=== PATIENT | female | born 2000 | race Caucasian/White ===

== ENCOUNTER → 2022-08-20 10:28 | Outpatient (BNVA) | payer MEDICAID, SELFPAY | PROVIDERS: Family Provider Nurse Practitioner; Visit Provider Nurse Practitioner Women's Health | DX: Z34.90 Encounter for supervision of normal pregnancy, unspecified, unspecified trimester (principal) | CPT/HCPCS: 80307; 81025; 84315; 84443; 85027; 86592; 86762; 86803; 86850; 86900; 87086; 87340; 87806 ==

== ENCOUNTER 2022-09-13 14:27 | Emergency (ER) | payer OTHER, MEDICAID, SELFPAY ==
[2022-09-13 14:34] VITALS: BP 111/76; PULSE 98; RESP 18; TEMP 36.7; O2SAT 99
--- NOTE | 2022-09-13 14:49 | ED_ITS ---
HPI - Nausea/Vomiting/Diarrhea General: Chief complaint: Nausea/Vomiting/Diarrhea Stated complaint: vomiting Time Seen by Provider: 09/13/22 14:31 Source: patient Mode of arrival: ambulatory Limitations: no limitations History of Present Illness: Patient is a 22-year-old female at approximately 8.5 weeks gestation here for nausea and vomiting. At her last OB visit on 09/04 LMP placed her at roughly 13 weeks but on dating ultrasound performed that same day she was dated at 7w5d. Patient states thus far she has had one episode of nausea and vomiting not including today's visit. She states she woke up this morning feeling nauseous and has had 4 episodes of nonbloody emesis. She is not having any abdominal pain or cramping. No changes in bowel movements. No fevers. No diffuse body aches. Denies sick contacts or poor food exposures. No vaginal bleeding. MD elicited complaint: nausea and vomiting Onset (ago): hour(s) Associated nausea: Yes Associated abdominal pain: No Location of pain: None Severity: mild Exacerbating factors: eating Relieving factors: none Context: other ( ) Associated symtoms: Reports nausea; Denies chest pain, dizziness, dysuria, fatigue, headache(s) or malaise Review of Systems Const: Denies: fever(s), chills, body aches, fatigue or malaise Card: Denies: chest pain Resp: Denies: dyspnea GI: Reports: nausea and vomiting; Denies: abdominal pain, hematemesis or change in bowel habits : Denies: flank pain, dysuria, urinary urgency, hematuria, vaginal bleeding, vaginal discharge or pelvic pain Musc: Denies: back pain Skin/Breast: Denies: rash Neuro: Denies: headache(s) or dizziness PFSH ED PFSH: Medical History No pertinent past medical history Surgical History No pertinent past surgical history Family History Grandmother Breast cancer MATERNAL AND PATERNAL Hypertension MATERNAL AND PATERNAL Stroke MATERNAL AND PATERNAL Grandfather Hypertension MATERNAL AND PATERNAL Stroke MATERNAL AND PATERNAL Mother Hypertension Denies family history of Colon cancer Ovarian cancer Diabetes Heart disease Hypercholesteremia Uterine cancer Thyroid disease Physical Exam Const: COMMON NORMALS: no acute distress, average body habitus, patient oriented x3, no limitations, healthy appearing, alert and well nourished GENERAL APPEARANCE: cooperative ORIENTATION/CONSCIOUSNESS: Yes awake, Yes oriented to person, Yes oriented to place and Yes oriented to time HENMT: COMMON NORMALS: normocephalic and atraumatic HEAD & SCALP: normal to inspection, normocephalic and atraumatic Resp: COMMON NORMALS: normal respiratory effort and clear to auscultation bilaterally AUSCULTATION: clear to auscultation bilaterally Cardio: COMMON NORMALS: regular rate and regular rhythm RATE: regular rate RHYTHM: regular rhythm GI: COMMON NORMALS: Normal to inspection, nondistended, normoactive bowel sounds present, Soft to palpation, non-tender, No hepatosplenomegaly present and no masses PALPATION: Yes Soft to palpation and Yes No hepatosplenomegaly present : COMMON NORMALS: Yes no CVA tenderness BLADDER/KIDNEY EXAM: Yes no CVA tenderness Back/Pelvis: COMMON NORMALS: no CVA tenderness Extremity: GENERAL: Yes normal exam except as noted Neuro: THOM COMA SCALE: document GCS findings Thom coma scale eye opening: Spontaneous Austin coma scale verbal response: Orientated Austin coma scale motor response: Obey commands Thom coma scale total score: 15 COMMON NORMALS: patient oriented x3 SENSORIUM/ORIENTATION: Yes alert, Yes oriented to person, Yes oriented to place and Yes oriented to time Skin: COMMON NORMALS: no rashes or lesions noted GENERAL SKIN EXAM: no rashes or lesions noted Course 2 Vital Signs: Vital signs: Vital Signs Temperature 98.0 F 09/13/22 14:34 Pulse Rate 94 09/13/22 15:30 Respiratory Rate 14 09/13/22 15:06 Blood Pressure 111/76 09/13/22 14:34 Pulse Oximetry 100 09/13/22 15:30 Oxygen Delivery Me thod 09/13/22 15:30 MDM - Nausea/Vomiting/Diarrhea Medical Decision Making Patient states she feels better after IV Benadryl and Reglan. She was able to hold down liquids easily here. She has not had any vomiting throughout her stay. Vital signs are stable. Blood work is unremarkable. Patient will be discharged home with a prescription for Diclegis. Recommend she follow-up with her OB provider if nausea/vomiting persists. Lab Data 09/13/22 14:59 09/13/22 15:36 Laboratory Results WBC 12.7 10^3/uL (4.5-13.0) 09/13/22 14:59 RBC 4.20 10^6/uL (4.1-5.3) 09/13/22 14:59 Hgb 12.6 g/dL (11.5-15.3) 09/13/22 14:59 Hct 38.9 % (37.0-47.0) 09/13/22 14:59 MCV 92.6 fl (81-99) 09/13/22 14:59 MCH 30.0 pg (28.0-34.0) 09/13/22 14:59 MCHC 32.4 g/dL (30.0-36.0) 09/13/22 14:59 RDW 13.2 % (12.1-15.1) 09/13/22 14:59 Plt Count 214 10^3/cmm (130-400) 09/13/22 14:59 MPV 10.1 fL (7.4-10.4) 09/13/22 14:59 Neut % (Auto) 82.1 % 09/13/22 14:59 Lymph % (Auto) 10.8 % 09/13/22 14:59 [place] % (Auto) 5.7 % 09/13/22 14:59 Eos % (Auto) 0.4 % 09/13/22 14:59 Baso % (Auto) 0.3 % 09/13/22 14:59 Neut # (Auto) 10.45 10^3/uL (1.8-8.0) H 09/13/22 14:59 Lymph # (Auto) 1.4 10^3/uL (1.5-6.5) L 09/13/22 14:59 [place] # (Auto) 0.7 10^3/uL (0.2-0.9) 09/13/22 14:59 Eos # (Auto) 0.1 10^3/uL (0.0-0.8) 09/13/22 14:59 Baso # (Auto) 0.0 10^3/uL (0.0-0.1) 09/13/22 14:59 Nucleated RBC % (auto) 0 % 09/13/22 14:59 Nucleated RBCs # 0.0 /100WBC 09/13/22 14:59 Sodium 132 mmol/L (136-145) L 09/13/22 15:36 Potassium 3.8 mmol/L (3.5-5.1) 09/13/22 15:36 Chloride 101 mmol/L (98-107) 09/13/22 15:36 Carbon Dioxide 19 mmol/L (22-29) L 09/13/22 15:36 Anion Gap 15.8 (5-19) 09/13/22 15:36 BUN 8 mg/dL (6-20) 09/13/22 15:36 Creatinine 0.5 mg/dL (0.5-0.9) 09/13/22 15:36 GFR Calculation 157.3 mL/min (90-130) H 09/13/22 15:36 Glucose 74 mg/dL (65-115) 09/13/22 15:36 Calculated Osmolality 271 mOsm/kg (285-295) L 09/13/22 15:36 Calcium 9.0 mg/dL (8.5-10.5) 09/13/22 15:36 Total Bilirubin 0.3 mg/dL (0.15-1.2) 09/13/22 15:36 AST 19 U/L (0-32) 09/13/22 15:36 ALT 21 U/L (0-33) 09/13/22 15:36 Alkaline Phosphatase 55 U/L (35-105) 09/13/22 15:36 Total Protein 6.8 g/dL (6.6-8.7) 09/13/22 15:36 Albumin 4.0 g/dL (3.5-5.2) 09/13/22 15:36 Globulin 2.8 g/dL (1.3-4.6) 09/13/22 15:36 Ser , Semi-Qnt 872800.00 mIU/mL 09/13/22 15:36 Urine Color Yellow (Yellow) 09/13/22 15:55 Urine Appearance Hazy (CLEAR) A 09/13/22 15:55 Urine pH 6.5 (5-7) 09/13/22 15:55 Ur Specific [place] 1.015 (1.005-1.030) 09/13/22 15:55 Urine Protein Neg (Negative) 09/13/22 15:55 Urine Glucose (UA) Norm (Normal) 09/13/22 15:55 Urine Ketones 2+ (Negative) H 09/13/22 15:55 Urine Blood Neg (Negative) 09/13/22 15:55 Urine Nitrate Negative (Negative) 09/13/22 15:55 Urine Bilirubin Neg (Negative) 09/13/22 15:55 Urine Urobilinogen Norm mg/dL (Negative) 09/13/22 15:55 Ur Leukocyte Esterase Trace (Negative) H 09/13/22 15:55 Urine RBC None /hpf (0-2) 09/13/22 15:55 Urine WBC 5-10 /hpf (0-5) H 09/13/22 15:55 Ur Squamous Epith Cells 15-25 /hpf (0-5) H 09/13/22 15:55 Ur Transition Epith Cell 0-4 /hpf 09/13/22 15:55 Amorphous Sediment 1+ /hpf 09/13/22 15:55 Urine Bacteria 1+ /hpf (NONE) H 09/13/22 15:55 Urine Mucus 2+ /hpf 09/13/22 15:55 Discharge Plan Discharge Patient Disposition: Home Clinical Impression: Nausea/vomiting in Condition: Stable Prescriptions: New Diclegis 10-10 mg tablet,delayed release (DR/EC) 1 tab PO BID Qty: 10 0RF Discharge Orders: Discharge ED (Routine); Ordered 09/13/22 Ordered By: Fay Kemp Patient Instructions: Nausea and Vomiting in (ED) Coding Level of Care Code ED Lead Customer Service Representative for Prashant Dang
[2022-09-13] MEDS: diphenhydrAMINE 50 mg/mL SDV 1mL 25 MG IVP (14:59)
[2022-09-13] MEDS: sodium chloride 0.9% 1,000 ML 999 ML IV (15:00)
[2022-09-13 15:06] VITALS: PULSE 94; RESP 14; O2SAT 99
[2022-09-13 15:10] LABS: Basophils % 0.3 %; Eosinophils # 0.1 10^3/uL (0.0-0.8); Eosinophils % 0.4 %; Hematocrit 38.9 % (37.0-47.0); Hemoglobin 12.6 g/dL (11.5-15.3); Lymphocytes # 1.4 10^3/uL (1.5-6.5); Lymphocytes % 10.8 %; Mean Corpuscular HGB Conc 32.4 g/dL (30.0-36.0); Mean Corpuscular Volume 92.6 fl (81-99); Mean Platelet Volume 10.1 fL (7.4-10.4); Monocytes # 0.7 10^3/uL (0.2-0.9); Monocytes % 5.7 %; Neutrophils # 10.45 10^3/uL (1.8-8.0); Neutrophils % 82.1 %; Nucleated Red Blood Cells % 0 %; Platelet Count 214 10^3/cmm (130-400); Red Cell Distribution Width 13.2 % (12.1-15.1); White Blood Count 12.7 10^3/uL (4.5-13.0)
[2022-09-13] MEDS: metoclopramide 5 mg/mL SDV 2 mL 10 MG IVP (15:29)
[2022-09-13 15:30] VITALS: PULSE 94; O2SAT 100
[2022-09-13 16:23] LABS: Alanine Aminotransferase 21 U/L (0-33); Alkaline Phosphatase 55 U/L (35-105); Anion Gap 15.8 (5-19); Aspartate Amino Transferase 19 U/L (0-32); Blood Urea Nitrogen 8 mg/dL (6-20); Carbon Dioxide 19 mmol/L (22-29); Chloride 101 mmol/L (98-107); Globulin 2.8 g/dL (1.3-4.6); Glomerular Filtration Rate 157.3 mL/min (90-130); Glucose 74 mg/dL (65-115); Osmolality Calculated 271 mOsm/kg (285-295); Potassium 3.8 mmol/L (3.5-5.1); Sodium 132 mmol/L (136-145); Total Bilirubin 0.3 mg/dL (0.15-1.2); Total Protein 6.8 g/dL (6.6-8.7)
[2022-09-13 16:24] LABS: Add Urine Microscopic? YES; Bilirubin Urine Neg (Negative); Blood Urine Neg (Negative); Glucose Urine UA Norm (Normal); Ketones Urine 2+ (Negative); Leukocyte Esterase Urine Trace (Negative); Nitrate Urine Negative (Negative); Protein Urine Neg (Negative); Specific Gravity, Urine 1.015 (1.005-1.030); Urine Appearance Hazy (CLEAR); Urine Color Yellow (Yellow); Urobilinogen Urine Norm (Negative); pH Urine 6.5 (5-7)
[2022-09-13 16:25] LABS: Squamous Epithelial Cell Urine 15-25 /hpf (0-5)
[2022-09-13 16:26] LABS: Add Urine Culture? No; Amorphous Sediment Urine 1+ /hpf; Bacteria Urine 1+ /hpf; Mucus Urine 2+ /hpf; Transitional Epi Cells Urine 0-4 /hpf
--- NOTE | 2022-09-18 14:14 | DCPLANNER ---
manager shell called patient due to no primary care physician - no answer at this time.
== END 2022-09-13 18:02 | disposition home or self-care (01) ==
PROVIDERS: Emergency Provider Physician Assistant
DX: O21.8 Other vomiting complicating pregnancy (principal); Z3A.08 8 weeks gestation of pregnancy
CPT/HCPCS: 36415; 80053; 81001; 84702; 85025; 96374; 96375; 99284; J1200; J2765; J7030

== ENCOUNTER → 2022-09-25 14:37 | Outpatient (BNVA) | payer OTHER, MEDICAID, SELFPAY | PROVIDERS: Visit Provider Obstetrics & Gynecology | DX: Z34.90 Encounter for supervision of normal pregnancy, unspecified, unspecified trimester (principal) | CPT/HCPCS: 80307; 84315; 87086 ==

== ENCOUNTER → 2022-10-10 14:30 | Outpatient (BNVA) | payer OTHER, MEDICAID, SELFPAY | PROVIDERS: Visit Provider Obstetrics & Gynecology | DX: Z34.90 Encounter for supervision of normal pregnancy, unspecified, unspecified trimester (principal) | CPT/HCPCS: 84315; 87491; 87591; 87661 ==

== ENCOUNTER → 2022-11-06 09:30 | Outpatient (BNVA) | payer OTHER, MEDICAID, SELFPAY | PROVIDERS: Visit Provider Obstetrics & Gynecology | DX: Z34.90 Encounter for supervision of normal pregnancy, unspecified, unspecified trimester (principal) | CPT/HCPCS: 84315; 87086 ==

== ENCOUNTER → 2022-12-05 11:07 | Outpatient (BNVA) | payer OTHER, MEDICAID, SELFPAY | PROVIDERS: Visit Provider Obstetrics & Gynecology | DX: Z34.90 Encounter for supervision of normal pregnancy, unspecified, unspecified trimester (principal) | CPT/HCPCS: 84315; 87086 ==

== ENCOUNTER → 2022-12-29 10:03 | Outpatient (BNVA) | payer OTHER, MEDICAID, SELFPAY | PROVIDERS: Visit Provider Obstetrics & Gynecology | DX: Z34.90 Encounter for supervision of normal pregnancy, unspecified, unspecified trimester (principal) | CPT/HCPCS: 84315; 87086 ==

== ENCOUNTER → 2023-01-28 09:30 | Outpatient (BNVA) | payer OTHER, MEDICAID, SELFPAY | PROVIDERS: Visit Provider Obstetrics & Gynecology | DX: Z34.90 Encounter for supervision of normal pregnancy, unspecified, unspecified trimester (principal) | CPT/HCPCS: 82950; 84315; 85025 ==

== ENCOUNTER → 2023-02-16 08:00 | Outpatient (BNVA) | payer OTHER, MEDICAID, SELFPAY | PROVIDERS: Visit Provider Obstetrics & Gynecology | DX: Z34.90 Encounter for supervision of normal pregnancy, unspecified, unspecified trimester (principal) | CPT/HCPCS: 82951; 82952 ==

== ENCOUNTER → 2023-03-03 10:25 | Outpatient (BNVA) | payer OTHER, MEDICAID, SELFPAY | PROVIDERS: Visit Provider Obstetrics & Gynecology | DX: Z34.90 Encounter for supervision of normal pregnancy, unspecified, unspecified trimester (principal) | CPT/HCPCS: 76816 ==

== ENCOUNTER → 2023-03-24 09:06 | Outpatient (BNVA) | payer OTHER, MEDICAID, SELFPAY | PROVIDERS: Visit Provider Obstetrics & Gynecology | DX: Z34.90 Encounter for supervision of normal pregnancy, unspecified, unspecified trimester (principal) | CPT/HCPCS: 84315; 87081 ==

== ENCOUNTER 2023-04-12 07:54 | Inpatient (IN) | payer OTHER, MEDICAID, SELFPAY ==
[2023-04-12] VITALS (90 sets, daily range): BP systolic 99–141; BP diastolic 54–88; PULSE 75–187; RESP 15–16; TEMP 36.4–37.1; O2SAT 91–100; BMI 23.6
[2023-04-12] MEDS: calcium carbonate 500 mg Chew Tablet 1000 MG PO (08:14)
[2023-04-12 09:08] LABS: Basophils # 0.1 10^3/uL (0.0-0.1); Basophils % 0.6 %; Eosinophils # 0.1 10^3/uL (0.0-0.8); Eosinophils % 0.9 %; Hematocrit 30.6 % (36-47); Lymphocytes # 1.6 10^3/uL (0.8-4.8); Lymphocytes % 19.6 %; Mean Corpuscular Hemoglobin 29.1 pg (27-33); Mean Corpuscular Volume 93.9 fl (85-98); Mean Platelet Volume 9.9 fL (7.4-10.4); Monocytes # 0.7 10^3/uL (0.2-0.9); Monocytes % 9.1 %; Neutrophils # 5.45 10^3/uL (1.8-7.7); Neutrophils % 68.9 %; Nucleated Red Blood Cells % 0 %; Platelet Count 167 10^3/cmm (157-399); Red Blood Count 3.26 10^6/uL (3.85-5.65); Red Cell Distribution Width 12.2 % (12.1-15.1); White Blood Count 7.91 10^3/uL (3.29-11.43)
[2023-04-12] MEDS: oxytocin 30 UNIT/500 ML BAG IV (09:08)
[2023-04-12] MEDS: dextrose 5%-lactated ringers 1,000 ML 125 ML IV ×2 (09:08→23:51)
[2023-04-12] MEDS: fentaNYL 50 mcg/mL INJ 2mL IVP ×2 (12:19→14:16)
--- NOTE | 2023-04-12 14:10 | P.PN_ITS ---
AUTOMOTIVE SALES PROFESSIONAL Subjective Subjective: Interval history: Fetus reassuring Comfortable with epidural Cx: 6 cm Continue Pitocin Labor: Station: +1 Amniotic Membrane Status: Ruptured Monitor M ode: External Contraction Pattern: Regular Status: Category II Vitals/I&O/Wt Last Vital Signs Temp 98.8 F 04/12/23 17:53 Pulse 117 H 04/12/23 22:27 Resp 15 04/12/23 14:16 BP 118/68 04/12/23 22:27 Pulse Ox 98 04/12/23 22:25 O2 Del Method Room Air 04/12/23 08:05 04/12/23 04/12/23 04/12/23 06:59 14:59 22:59 Intake Total 32.016 / 32.016 103.883 / 135.899 Output Total 25 / 25 Balance 32.016 / 32.016 78.883 / 110.899 Weight last 48 hrs Weight 121 lb Physical Exam Urinary Catheter Management: Buckley: Cath Placed During This Visit: yes Reason for Continuing Indwelling Catheter: Not indwelling catheter Urinary Catheter Date of Insertion: 04/12/23 Urinary Catheter Time of Insertion: 16:15 Data 04/12/23 08:32 A&P Assessment and plan (1) Encounter for induction of labor: patient comfortable with epidural cervix progressing well continue pitocin Attestations Medical Necessity Statement*: patient at 39 w 1 d, admitted for labor induction Coding Level of Care Code Acute Code for Chg Fwd Diagnoses Encounter for induction of labor Z34.90 Time Spent (min) 20
[2023-04-12] MEDS: lactated ringers 1,000 ML 999 ML IV (15:10)
[2023-04-12] MEDS: ondansetron 2 mg/ML SDV 2 mL 4 MG IVP ×2 (15:10→23:50)
--- NOTE | 2023-04-12 15:21 | P.HP_ITS ---
Providers/Chief Complaint Admitting Physician: Buster Perea MD Primary PRESSURE DISPATCHER: Buster Perea MD Chief Complaint: IOL HPI PRESSURE DISPATCHER History of Present Illness Jessica Parra is a 23 year old female 23 y.o.? G1 EDC? April 18, 2023 At 39 w 1 d No complications No c/o + active movements Admitted for elective induction of labor Fundal height has been less than gestational age OB sono done 03-03-23 showed adequate interval growth 1-h glucola mildly elevated 3-h GTT?? all WNL Present Details : 1 Para: 0 Labs Rubella: Immune RPR: Negative GBS: Negative Medications/Allergies Home Medications Medication Instructions Recorded Confirmed Last Taken Type PNV 153-FA 400 mcg-om3 35 mg-dha tab PO 10/10/22 04/07/23 Unknown History 25 mg-epa 5 mg-fish oil chew tablet ( Gummies) calcium carbonate 200 mg calcium 200 mg PO BID 10/10/22 04/07/23 Unknown History (500 mg) chewable tablet (Tums) Allergies Allergy/AdvReac Type Severity Reaction Status Date / Time No Known Allergies Allergy Verified 03/31/23 09:18 PFSH PRESSURE DISPATCHER PFSH: Medical History No pertinent past medical history Surgical History No pertinent past surgical history Family History Grandmother Breast cancer MATERNAL AND PATERNAL Hypertension MATERNAL AND PATERNAL Stroke MATERNAL AND PATERNAL Grandfather Hypertension MATERNAL AND PATERNAL Stroke MATERNAL AND PATERNAL Mother Hypertension Denies family history of Colon cancer Ovarian cancer Diabetes Heart disease Hypercholesteremia Uterine cancer Thyroid disease History History History 1 Term 0 Miscarriages/Ectopic Living Children Care JOSUE Calculator Estimated Delivery Date Method Current WG Current Estimate 04/18/23 Ultrasound #1 39w 1d Other Estimates 03/11/23 LMP (Certain) 44w 4d Vitals/I&O/Wt Last Vital Signs Temp 97.5 F L 04/12/23 14:51 Pulse 105 H 04/12/23 15:12 Resp 15 04/12/23 14:16 BP 132/71 04/12/23 15:12 O2 Del Method Room Air 04/12/23 08:05 04/12/23 04/12/23 04/12/23 06:59 14:59 22:59 Intake Total 32.016 / 32.016 Balance 32.016 / 32.016 Weight last 48 hrs Weight 121 lb Physical Exam Narrative: Weight? 120? lbs;? 5? VS? normal Comfortable, awake, alert Lungs:? clear Cor:? RRR FH? 36 cm Cervix:? 1 / 50% / -2 / posterior Ext:? no edema Data 04/12/23 08:32 Results Labs OB ([facility]): Obstetrics US 03/03/23 Blood Type O Positive 04/12/23 Antibody Screen Negative 04/12/23 Hct 30.6 % (36-47) L 04/12/23 Hgb 9.50 g/dL (11.27-16.99) L 04/12/23 Rho(D) Type Positive 04/12/23 Plt Count 167 10^3/cmm (157-399) 04/12/23 Hep Bs Antigen Non-reactive (Nonreactive) 08/20/22 Hepatitis C Antibody Non-reactive (Nonreactive) 08/20/22 Rubella IgG Antibody 25.2 IU/mL (0.0-10.0) H 08/20/22 RPR Nonreactive (Nonreactive) 08/20/22 HIV 1&2 Ab & HIV 1 Ag Non-reactive (Non-Reactiv) 08/20/22 TSH 0.94 uIU/mL (0.27-4.20) 08/20/22 Gest Glucose Tolerance mg/dL 02/16/23 Ser , Semi-Qnt 385469.00 mIU/mL 09/13/22 HCG, Qual Positive (Negative) H 08/20/22 Urine Opiates Screen Negative ng/mL (Negative) 09/25/22 Ur Barbiturates Screen Negative ng/mL (Negative) 09/25/22 Ur Phencyclidine Scrn Negative ng/mL (Negative) 09/25/22 Ur Amphetamines Screen Negative ng/mL (Negative) 09/25/22 U Benzodiazepines Scrn Negative ng/mL (Negative) 09/25/22 Urine Cocaine Screen Negative ng/mL (Negative) 09/25/22 U Marijuana (THC) Screen Negative ng/mL (Negative) 09/25/22 Micro Urine Specimen 12/29/22 A&P Assessment and plan (1) Supervision of normal : 39 w 1 d fetus reassuring (2) Encounter for induction of labor: Admitted for elective labor induction, per patient request Plan start Pitocin Attestations Medical Necessity Statement*: patient at 39 w 1 d, admitted for induction of labor Coding Level of Care Code Acute Code for Chg Fwd Diagnoses Supervision of normal Z34.90 Encounter for induction of labor Z34.90 Time Spent (min) 20
--- NOTE | 2023-04-12 15:32 | ANES.PREANE2 ---
Pre-Anesthetic Assessment Height/Weight: Height 1.52 m Weight 54.885 kg Temp Pulse Resp BP O2 Del Method 97.5 F L 105 H 15 132/71 Room Air 04/12/23 14:51 04/12/23 15:12 04/12/23 14:16 04/12/23 15:12 04/12/23 08:05 Preop Diagnosis: labor pain epidural Familial anesthetic complications: none Was Beta Nohemi taken within 24 hours: N/A Was Clonidine taken within 24 hours: N/A Social No alcohol and No tobacco Exam alert, oriented x 3, clear to auscultation bilaterally and regular rate & rhythm Airway Submandibular: within normal limits Cervical ROM: within normal limits Mallampati: Class II Dentition: full Pulmonary None reported CV/HEM None reported None reported Hepatic None reported GI Gastroesophageal Reflux Disease Metabolic None reported Musc/skel None reported Neuropsych None reported Anesthetic Plan ASA status: 2 Anesthesia: Regional (specify below) Risk of > 500 ml blood loss (7ml/kg in children): No Medications/Allergies Home Medications Medication Instructions Recorded Confirmed Last Taken Type PNV 153-FA 400 mcg-om3 35 mg-dha tab PO 10/10/22 04/07/23 Unknown History 25 mg-epa 5 mg-fish oil chew tablet ( Gummies) calcium carbonate 200 mg calcium 200 mg PO BID 10/10/22 04/07/23 Unknown History (500 mg) chewable tablet (Tums) Allergies Allergy/AdvReac Type Severity Reaction Status Date / Time No Known Allergies Allergy Verified 03/31/23 09:18 Current Medications Generic Name Dose Route Start Last Admin Trade Name Em PRN Reason Stop Dose Admin Calcium Carbonate 1,000 mg 04/12/23 07:55 04/12/23 08:14 Calcium Carbonate 500 Mg Chew Tablet PO 1,000 mg Q4H PRN Administration Heartburn/Indigestion (Use 1st) Fentanyl 25 - 100 mcg 04/12/23 10:26 04/12/23 14:16 Fentanyl 50 Mcg/Ml Inj 2ml IVP 50 mcg Q1H PRN Administration SEVERE PAIN Dextrose/Lactated Ringer's 1,000 mls @ 125 mls/hr 04/12/23 08:00 04/12/23 09:08 Dextrose 5%-Lactated Ringers IV 125 mls/hr .Q8H RAY Administration Oxytocin 30 unit in 500 mls @ 1 mls/hr 04/12/23 09:00 04/12/23 13:25 Pitocin IV 15 milliunit/min .Q24H RAY 15 mls/hr Titration Protocol 1 MILLIUNIT/MIN Lactated Ringer's 1,000 mls @ 999 mls/hr 04/12/23 13:09 04/12/23 15:10 Lactated Ringers IV 999 mls/hr .Q1H1M PRN Administration See label comments Ondansetron HCl 4 mg 04/12/23 07:55 04/12/23 15:10 Ondansetron 2 Mg/Ml Sdv 2 Ml IVP 4 mg Q4H PRN Administration NAUSEA AND VOMITING PFSH Anesthesia Medical History No pertinent past medical history Surgical History No pertinent past surgical history Family History Grandmother Breast cancer MATERNAL AND PATERNAL Hypertension MATERNAL AND PATERNAL Stroke MATERNAL AND PATERNAL Grandfather Hypertension MATERNAL AND PATERNAL Stroke MATERNAL AND PATERNAL Mother Hypertension Denies family history of Colon cancer Ovarian cancer Diabetes Heart disease Hypercholesteremia Uterine cancer Thyroid disease Female Reproductive History : 1 Data Anesthesia 04/12/23 08:32 Short CBC 04/12/23 Range/Units 08:32 WBC 7.91 (3.29-11.43) 10^3/uL Hgb 9.50 L (11.27-16.99) g/dL Hct 30.6 L (36-47) % MCV 93.9 (85-98) fl Plt Count 167 (157-399) 10^3/cmm Neut % (Auto) 68.9 % Neut # (Auto) 5.45 (1.8-7.7) 10^3/uL Blood Bank 04/12/23 08:32 Blood Type O Positive Rho(D) Type Positive Antibody Screen Negative Cardiac Studies: No Data to Display
[2023-04-12] MEDS: ROPivacaine syringe 100 MG/50 ML SYRINGE 10 MG EPIDURAL ×2 (15:50→19:01)
--- NOTE | 2023-04-12 15:59 | P.ANES_ITS ---
Anesthesia Procedures Procedure/Date: 04/12/23 epidural Procedure Narrative: epidural complete, bolus given, epidural pump initiated with ASSISTANT [employer] ATTORNEY education given, vitals taken during procedure and satisfactory throughout, patient admits to decrease pain, report of procedure to OB RN Epidural: Time Out Performed: Yes Consents Signed: Procedure Consent Consent: requested by attending/covering physician, from patient, risks and benefits reviewed and patient agrees to proceed Lumbar Level: L3-L4 Epidural position: sitting Epidural procedure: sterile prep of area, 1% lidocaine to numb the area (3 mL), 18 g needle, negative for paresthesia passed, neg for paresthesia, test dose given, 1.5% xylocaine 1:200k epi (5 mL), 0.2% Ropivacaine bolus ml (5 mL), placed PCEA, no systemic response, sterile dressing applied, L.U.D. no apparent complications and 0.2% Ropiavacaine @ mls/hr (13 mL/hr)
--- NOTE | 2023-04-12 20:45 | PM.OBGYPN ---
THERAPY SITE COORDINATOR Subjective Subjective: Interval history: April 12, 2023, 2044 DELIVERY NOTE , vigorous Normal placenta and cord Cord gases and blood obtained Right vaginal sulcus laceration repaired in layers Second-degree perineal laceration repaired EBL: 750 cc No complications Labor: Station: +1 Amniotic Membrane Status: Ruptured Monitor Mode: External Contraction Pattern: Regular Status: Category II Vitals/I&O/Wt Last Vital Signs Temp 98.8 F 04/12/23 17:53 Pulse 117 H 04/12/23 22:30 Resp 15 04/12/23 14:16 BP 118/68 04/12/23 22:27 Pulse Ox 100 04/12/23 22:30 O2 Del Method Room Air 04/12/23 08:05 04/12/23 04/12/23 04/12/23 06:59 14:59 22:59 Intake Total 32.016 / 32.016 103.883 / 135.899 Output Total 25 / 25 Balance 32.016 / 32.016 78.883 / 110.899 Weight last 48 hrs Weight 121 lb Physical Exam Urinary Catheter Management: Buckley: Cath Placed During This Visit: yes, but has since been removed by the nurse Reason for Continuing Indwelling Catheter: Not indwelling catheter Urinary Catheter Date of Insertion: 04/12/23 Urinary Catheter Time of Insertion: 16:15 Date Urinary Catheter Removed: 04/12/23 Time Urinary Catheter Discontinued: 19:44 Data 04/12/23 08:32 A&P Assessment and plan (1) Vaginal delivery: Attestations Medical Necessity Statement*: patient at 39 w 1 d, admitted for labor induction. Vaginal delivery with repair of vaginal lacerations. Coding Level of Care Code Acute Code for Chg Fwd Diagnoses Vaginal delivery O80 Time Spent (min) 90
--- NOTE | 2023-04-12 22:36 | PM.DELIVERY ---
Delivery Note: Date of delivery: April 12, 2023 Pre-delivery diagnoses: 39 w 1 d induction of labor Post-delivery diagnoses: vaginal delivery right vaginal sulcus and second-degree perineal lacerations, repaired Procedure: vaginal delivery repair of right vaginal sulcus and second-degree perineal lacerations Op report anesthesia: Epidural Delivering Physician: Buster Perea MD Estimated blood loss (mL): 750 Findings: vigorous normal placenta and cord cord gases and blood obtained right vaginal sulcus and second-degree perineal lacerations with brisk bleeding, controlled and repaired in layers Pre-Delivery Course: patient progressed with pitocin induction Delivery: vaginal Post-Delivery Status: stable History History History 1 Term 0 Miscarriages/Ectopic Living Children A&P Assessment and plan (1) Vaginal delivery: (2) Vaginal laceration: right vaginal sulcus and second-degree perineal lacerations with brisk bleeding, controlled and repaired in layers Coding Level of Care Code Acute Code for Chg Fwd Diagnoses Vaginal delivery O80 Vaginal laceration S31.41XA Time Spent (min) 90
[2023-04-13] VITALS (7 sets, daily range): BP systolic 107–131; BP diastolic 63–76; PULSE 86–108; RESP 15–18; TEMP 36.3–36.8; O2SAT 96–97
[2023-04-13 09:45] LABS: Mean Corpuscular HGB Conc 31.5 g/dL (30-55); Mean Corpuscular Hemoglobin 29.3 pg (27-33); Mean Platelet Volume 9.8 fL (7.4-10.4); Platelet Count 152 10^3/cmm (157-399); Red Blood Count 2.15 10^6/uL (3.85-5.65); Red Cell Distribution Width 12.5 % (12.1-15.1); White Blood Count 12.31 10^3/uL (3.29-11.43)
[2023-04-13] MEDS: acetaminophen 650 mg/20.3 mL UDC PO ×2 (10:36→15:33)
--- NOTE | 2023-04-13 12:33 | P.ANESPOST_ITS ---
Inpatient post-anesthesia follow up: Airway intact: Yes Vital signs: Temperature 98.3 F Pulse Rate 86 Respiratory Rate 18 Blood Pressure 131/75 Pulse Oximetry 96 Oxygen Delivery Me thod Room Air Oxygen Flow Rate Fraction of Inspir ed Oxygen Hydration adequate: Yes Nausea and vomiting: No Pain level: 2 Mental status: Baseline Additional Comments: Anes start 04/12/23 1546 Anes end 04/12/23 0763
--- NOTE | 2023-04-13 12:34 | P.ANESPOST_ITS ---
Inpatient post-anesthesia follow up: Airway intact: Yes Vital signs: Temperature 98.3 F Pulse Rate 86 Respiratory Rate 18 Blood Pressure 131/75 Pulse Oximetry 96 Oxygen Delivery Me thod Room Air Oxygen Flow Rate Fraction of Inspir ed Oxygen Hydration adequate: Yes Nausea and vomiting: No Pain level: 2 Mental status: Baseline Additional Comments: Anes start 04/11/23 0354 Anes end
--- NOTE | 2023-04-13 20:50 | PM.OBGYPN ---
MENTAL HEALTH SPECIALIST Subjective Subjective: Interval history: no c/o no dizziness, chest pain, shortness of breath on exertion no bleeding, pain eating, voiding, ambulating well caring for without any problems Labor: Station: +1 Amniotic Membrane Status: Ruptured Monitor Mode: External Contraction Pattern: Regular Status: Category II Vitals/I&O/Wt Last Vital Signs Temp 97.4 F L 04/13/23 20:46 Pulse 108 H 04/13/23 20:46 Resp 15 04/13/23 20:46 BP 113/76 04/13/23 20:46 Pulse Ox 97 04/13/23 20:46 O2 Del Method Room Air 04/13/23 20:46 Weight last 48 hrs Weight 121 lb Physical Exam Narrative: afebrile, VS normal comfortable, awake, alert Abd: soft, nontender. fundus firm Ext: no edema; nontender Urinary Catheter Management: Buckley: Cath Placed During This Visit: yes, but has since been removed by the nurse Reason for Continuing Indwelling Catheter: Not indwelling catheter Urinary Catheter Date of Insertion: 04/12/23 Urinary Catheter Time of Insertion: 16:15 Date Urinary Catheter Removed: 04/12/23 Time Urinary Catheter Discontinued: 19:44 Data 04/13/23 09:31 A&P Assessment and plan (1) Vaginal delivery: PPD #1 , Right vaginal sulcus laceration repaired in layers Second-degree perineal laceration repaired doing well discharge home today instructions and precautions given call/return if fever, chills, headache, blurry vision, nausea, vomiting, abdominal pain; vaginal bleeding or discharge; shortness of breath, chest pain, leg pains or swelling; inability to void, perineal pain or swelling; feelings of depression or mood changes; thoughts of suicide or harming others; inability to care for baby. (2) Vaginal laceration: (3) Anemia: Patient asymptomatic No dizziness, weakness, palpitations Encouraged iron BID; iron-rich foods; fluids f/u in one week or PRN Attestations Medical Necessity Statement*: patient s/p and perineal laceration repair; plan discharge home today Coding Level of Care Code Acute Code for Chg Fwd Diagnoses Vaginal delivery O80 Vaginal laceration S31.41XA Anemia D64.9 Time Spent (min) 20
--- NOTE | 2023-04-13 20:53 | PM.OBGYDC ---
Discharge Providers TERRAZZO FINISHER Date of Admission: 04/12/23 07:54 Date of Discharge: 04/13/23 Attending Provider at Admission: Buster Perea MD Attending Provider at Discharge: Buster Perea MD Consults: none Primary TERRAZZO FINISHER: Buster Perea MD Diagnoses at Discharge Discharge Diagnosis (1) Vaginal delivery: Status: Acute (2) Vaginal laceration: Details from hospital stay: Right vaginal sulcus laceration repaired in layers Second-degree perineal laceration repaired Status: Acute (3) Anemia: Details from hospital stay: Hgb 6.3 (9.5 prior to delivery) Patient asymptomatic No dizziness, weakness, palpitations Encouraged iron BID; iron-rich foods; fluids f/u in one week or PRN Status: Acute Reason for Visit Reason for Visit: IOL Brief History: 23 y.o. G1 at 39 w 1 d admitted for labor induction Hospital Course Hospital Course patient progressed to vaginal delivery had repair of right vaginal sulcus and second-degree perineal lacerations did well + anemia patient asymptomatic It was decided to treat conservatively with iron, iron-rich foods Information Peripartum Data: Infant Delivery Method: Vaginal Laceration description: Perineal - 2nd Degree Physical Exam Const: COMMON NORMALS: no acute distress, average body habitus, patient oriented x3, no limitations, healthy appearing, alert and well nourished Resp: COMMON NORMALS: normal respiratory effort and clear to auscultation bilaterally AUSCULTATION: clear to auscultation bilaterally Cardio: COMMON NORMALS: regular rate and regular rhythm RATE: regular rate RHYTHM: regular rhythm GI: COMMON NORMALS: Normal to inspection, nondistended, normoactive bowel sounds present, Soft to palpation and non-tender PALPATION: Yes Soft to palpation Extremity: COMMON NORMALS: normal to inspection and no calf tenderness Neuro: COMMON NORMALS: patient oriented x3 SENSORIUM/ORIENTATION: Yes alert Urinary Catheter Management: [place]: Cath Placed During This Visit: yes, but has since been removed by the nurse Reason for Continuing Indwelling Catheter: Not indwelling catheter Urinary Catheter Date of Insertion: 04/12/23 Urinary Catheter Time of Insertion: 16:15 Date Urinary Catheter Removed: 04/12/23 Time Urinary Catheter Discontinued: 19:44 History History History 1 Term 0 Miscarriages/Ectopic Living Children Discharge Data Studies Completed and Pending Laboratory Results WBC 12.31 10^3/uL (3.29-11.43) H 04/13/23 09:31 RBC 2.15 10^6/uL (3.85-5.65) L 04/13/23 09:31 Hgb 6.30 g/dL (11.27-16.99) L* 04/13/23 09:31 Hct 20.0 % (36-47) L* 04/13/23 09:31 MCV 93.0 fl (85-98) 04/13/23 09:31 MCH 29.3 pg (27-33) 04/13/23 09:31 MCHC 31.5 g/dL (30-55) 04/13/23 09:31 RDW 12.5 % (12.1-15.1) 04/13/23 09:31 Plt Count 152 10^3/cmm (157-399) L 04/13/23 09:31 MPV 9.8 fL (7.4-10.4) 04/13/23 09:31 Neut % (Auto) 68.9 % 04/12/23 08:32 Lymph % (Auto) 19.6 % 04/12/23 08:32 [place] % (Auto) 9.1 % 04/12/23 08:32 Eos % (Auto) 0.9 % 04/12/23 08:32 Baso % (Auto) 0.6 % 04/12/23 08:32 Neut # (Auto) 5.45 10^3/uL (1.8-7.7) 04/12/23 08:32 Lymph # (Auto) 1.6 10^3/uL (0.8-4.8) 04/12/23 08:32 [place] # (Auto) 0.7 10^3/uL (0.2-0.9) 04/12/23 08:32 Eos # (Auto) 0.1 10^3/uL (0.0-0.8) 04/12/23 08:32 Baso # (Auto) 0.1 10^3/uL (0.0-0.1) 04/12/23 08:32 Nucleated RBC % (auto) 0 % 04/12/23 08:32 Nucleated RBCs # 0.0 /100WBC 04/12/23 08:32 Blood Type O Positive 04/12/23 08:32 Rho(D) Type Positive 04/12/23 08:32 Antibody Screen Negative 04/12/23 08:32 Procedures Performed , Right vaginal sulcus laceration repaired in layers Second-degree perineal laceration repaired Vitals Last Vital Signs Temp 97.4 F L 04/13/23 20:46 Pulse 108 H 04/13/23 20:46 Resp 15 04/13/23 20:46 BP 113/76 04/13/23 20:46 Pulse Ox 97 04/13/23 20:46 O2 Del Method Room Air 04/13/23 20:46 Results Labs OB ([facility]): Obstetrics US 03/03/23 Blood Type O Positive 04/12/23 Antibody Screen Negative 04/12/23 Hct 20.0 % (36-47) L* 04/13/23 Hgb 6.30 g/dL (11.27-16.99) L* 04/13/23 Rho(D) Type Positive 04/12/23 Plt Count 152 10^3/cmm (157-399) L 04/13/23 Hep Bs Antigen Non-reactive (Nonreactive) 08/20/22 Hepatitis C Antibody Non-reactive (Nonreactive) 08/20/22 Rubella IgG Antibody 25.2 IU/mL (0.0-10.0) H 08/20/22 RPR Nonreactive (Nonreactive) 08/20/22 HIV 1&2 Ab & HIV 1 Ag Non-reactive (Non-Reactiv) 08/20/22 TSH 0.94 uIU/mL (0.27-4.20) 08/20/22 Gest Glucose Tolerance mg/dL 02/16/23 Ser , Semi-Qnt 362030.00 mIU/mL 09/13/22 HCG, Qual Positive (Negative) H 08/20/22 Urine Opiates Screen Negative ng/mL (Negative) 09/25/22 Ur Barbiturates Screen Negative ng/mL (Negative) 09/25/22 Ur Phencyclidine Scrn Negative ng/mL (Negative) 09/25/22 Ur Amphetamines Screen Negative ng/mL (Negative) 09/25/22 U Benzodiazepines Scrn Negative ng/mL (Negative) 09/25/22 Urine Cocaine Screen Negative ng/mL (Negative) 09/25/22 U Marijuana (THC) Screen Negative ng/mL (Negative) 09/25/22 Micro Urine Specimen 12/29/22 Discharge Plan Discharge Patient Disposition: Home Condition: Stable Prescriptions: New Feosol 325 mg (65 mg iron) tablet 325 mg PO BID Qty: 60 6RF Continued calcium carbonate [Tums] 200 mg calcium (500 mg) tablet,chewable 200 mg PO BID Gummies 400 mcg-35 mg- 25 mg-5 mg tablet,chewable PO Discharge Orders: Discharge Order (Routine); Ordered 04/13/23 Ordered By: Buster Perea Referrals: Buster Perea MD [Physician] - 04/20/23 10:15 am (04/20 @10:15) Discharge Diet: Usual diet Discharge Activity: Increase activity as tolerated Patient Instructions: Depression (DC), Bleeding (DC), Preeclampsia and Eclampsia After Delivery (GEN), Hemorrhage (DC), OB Discharge Report, OB Food/Drug Interaction Guide, Opioid Safety, OB Vaginal Deliveries - [facility] Discharge Attestations TERRAZZO FINISHER Time Spent in Discharge Care*: less than 30 min Coding Level of Care Code Acute Code for Chg Fwd Diagnoses Vaginal delivery O80 Vaginal laceration S31.41XA Anemia D64.9 Time Spent (min) 20
== END 2023-04-13 21:09 | disposition home or self-care (01) | DRG 806 ==
LOC: OPOB 07:55 → OBGYN 07:55
PROVIDERS: Admitting Provider Obstetrics & Gynecology; Visit Provider Obstetrics & Gynecology
DX: O90.81 Anemia of the puerperium (principal); O71.4 Obstetric high vaginal laceration alone; Z37.0 Single live birth; D64.9 Anemia, unspecified; Z3A.39 39 weeks gestation of pregnancy
CPT/HCPCS: 36415; 51702; 59025; 59409; 85025; 85027; 86850; 86900; 96374; 96376; 99211; J2405; J2590; J2795; J3010; J7120; J7121

== ENCOUNTER → 2024-06-14 10:04 | Outpatient (BNVA) | payer SELFPAY | PROVIDERS: Visit Provider Obstetrics & Gynecology | DX: Z30.9 Encounter for contraceptive management, unspecified (principal) | CPT/HCPCS: 81025 ==